=== PATIENT | female | born 1965 | race Caucasian/White ===

== ENCOUNTER 2017-04-22 11:25 | Inpatient (IN) | payer OTHER ==
[2017-04-22] MEDS ORDERED: LR 1,000 ML IV ONE (12:08)
[2017-04-22] MEDS ORDERED: LIDOCAINE 1% 2 ML INJ ID PRN (12:08)
[2017-04-22 12:58] LABS: % IMMATURE GRANULYOCYTES 0.4 % (0.0-1.1); ABSOLUTE IMMATURE GRANULOCYTES 0.03 10^3/uL (0.00-0.10); ADD DIFF? NO; ADD MORPH? NO; ADD SCAN? NO; ATYPICAL LYMPHOCYTE FLAG 0 (0-99); FRAGMENT RBC FLAG 0 (0-99); HEMATOCRIT 35.6 % (38.0-47.0); HEMOGLOBIN 11.3 g/dL (12.6-16.3); LEFT SHIFT FLG 10 (0-99); LIPEMIA HEMOLYSIS FLAG 80 (0-99); MEAN CELL HEMOGLOBIN 29.8 pg (27.9-34.1); MEAN CELL HEMOGLOBIN CONCENTR. 31.7 g/dL (32.4-36.7); MEAN CELL VOLUME 93.9 fL (81.5-99.8); MEAN PLATELET VOLUME 8.7 fL (8.7-11.7); PLATELET CLUMPS FLAG 0 (0-99); PLATELET COUNT 256 10^3/uL (150-400); RED BLOOD CELL COUNT 3.79 10^6/uL (4.18-5.33); RED CELL DISTRIBUTION WIDTH 12.9 % (11.5-15.2)
[2017-04-22] MEDS ORDERED: fentaNYL 100 MCG/2 ML INJ IT ONE (13:02)
[2017-04-22] MEDS ORDERED: TRANEXAMIC ACID 1,000 MG in NS 100 ML IV ONE (13:02)
[2017-04-22] MEDS ORDERED: ceFAZolin 2 GM/DEXTROSE 100 ML IV ONE (13:02)
[2017-04-22] MEDS ORDERED: morphINE PF 5 MG/10 ML INJ IT ONE (13:02)
[2017-04-22] MEDS ORDERED: THROMBIN (BOVINE) 20,000 UNIT VIAL TP ONE (13:12)
[2017-04-22] MEDS ORDERED: CHLORHEXIDINE GLUC HIBICLENS 118 ML BTL TP ONE (13:12)
[2017-04-22] MEDS ORDERED: BUPIVACAINE 0.25% 30 ML SDV ONE (13:13)
[2017-04-22] MEDS ORDERED: BACITRACIN 50,000 UNITS/10 ML SYR IRR ONE (13:13)
[2017-04-22 13:24] LABS: ANION GAP 8 mEq/L (8-16); CALCIUM 9.5 mg/dL (8.5-10.4); CARBON DIOXIDE 28 mEq/l (22-31); CHLORIDE 101 mEq/L (97-110); CREATININE 0.8 mg/dL (0.6-1.0); GLOMERULAR FILTRATION RATE > 60; GLUCOSE 92 mg/dL (70-100); POTASSIUM 4.6 mEq/L (3.5-5.2); SODIUM 137 mEq/L (134-144)
[2017-04-22] MEDS ORDERED: MIDAZOLAM 2 MG/2 ML VIAL IVP ONE (13:37)
--- NOTE | 2017-04-22 13:39 | PDANEPAE ---
ANE History of Present Illness lower back pain and left leg pain, nerve compression ANE Past Medical History Past Medical History: htn, - Cardiovascular History Hx Hypertension: Yes Hx Arrhythmias: No Hx Chest Pain: No Hx Coronary Artery / Peripheral Vascular Disease: No Hx CHF / Valvular Disease: No Hx Palpitations: No Cardiovascular History Comment: HYPERLIPIDEMIA - Pulmonary History Hx COPD: No Hx Asthma/Reactive Airway Disease: Yes Hx Recent Upper Respiratory Infection: No Hx Oxygen in Use at Home: No Hx Sleep Apnea: No Sleep Apnea Screening Result - Last Documented: Negative - Neurologic History Hx Cerebrovascular Accident: No Hx Seizures: No Hx Dementia: No - Endocrine History Hx Diabetes: No - Renal History Hx Renal Disorders: No - Liver History Hx Hepatic Disorders: No - Neurological & Psychiatric Hx Hx Neurological and Psychiatric Disorders: No - Cancer History Hx Cancer: No - Congenital Disorder History Hx Congenital Disorders: No - GI History Hx Gastrointestinal Disorders: No Gastrointestinal History Comment: ACID REFLUX - Other Health History Other Health History: NEG - Chronic Pain History Chronic Pain: Yes (BACK PAIN & LEG L) - Surgical History Prior Surgeries: LUMBAR FUSION ANE Review of Systems Review of Systems: - Exercise capacity METS (RN): 4 METS ANE Patient History - Allergies Allergies/Adverse Reactions: No Known Allergies Allergy (Unverified 10/24/12 13:20) - Home Medications Home Medications: Citalopram [celeXA 20 MG (RX)] 20 mg PO DAILY 10/24/12 [Last Taken 04/21/17 18: 00] Dexlansoprazole [Dexilant] 60 mg PO DAILY 10/24/12 [Last Taken 04/22/17 05:00] Lovastatin 20 mg PO DAILY 10/24/12 [Last Taken 04/20/17 18:00] Gabapentin [Neurontin 300 MG (*)] 600 mg PO DAILY 04/22/17 [Last Taken 04/22/17 11:15] Herbals/Supplements -Info Only 1 ea PO DAILY 04/22/17 [Last Taken Unknown] Lisinopril [Zestril 40 mg (*)] 40 mg PO DAILY 04/22/17 [Last Taken 04/22/17 05: 00] Methocarbamol [Robaxin 500 mg (*)] 500 mg PO Q4HRS PRN 04/22/17 [Last Taken 11:15] oxyCODONE IR [Oxycodone Ir (*)] 10 mg PO Q4HRS PRN 04/22/17 [Last Taken 11:15] - NPO status NPO Since - Liquids (Date): 04/21/17 NPO Since - Liquids (Time): 21:00 NPO Since - Solids (Date): 04/21/17 NPO Since - Solids (Time): 21:00 - Smoking Hx Smoking Status: Never smoked ANE Labs/Vital Signs - Labs Result Diagrams: 04/22/17 12:47 04/22/17 12:47 - Vital Signs Blood Pressure: 98/62 Heart Rate: 61 Respiratory Rate: 16 O2 Sat (%): 93 Height: 160.02 cm Weight: 74.843 kg ANE Physical Exam - Airway Neck exam: FROM Mallampati Score: Class 2 Mouth exam: poor dentition - Pulmonary Pulmonary: no respiratory distress - Cardiovascular Cardiovascular: regular rate and rhythym - ASA Status ASA Status: III ANE Anesthesia Plan Anesthesia Plan: general endotracheal anesthesia
[2017-04-22] MEDS ORDERED: HYDROmorphONE/DILAUDID 2 MG/ML INJ ONE (13:42)
[2017-04-22] MEDS ORDERED: fentaNYL 100 MCG/2 ML INJ ONE ×4 (13:42→17:14)
[2017-04-22] MEDS ORDERED: ROCURONIUM 50 MG/5 ML VIAL ONE (13:42)
--- NOTE | 2017-04-22 13:46 | PDHPUP ---
History & Physical Update H&P update statement: This history and physical update is based on an assessment of the patient which was completed after admission or registration (within 24 hours), but prior to the surgery/procedure. The patient underwent a CT of her lumbar spine after she was seen in the clinic for her post op visit. The CT was reviewed by Dr. Lambert who felt that the L4 screw was malpositioned and possibly contributing to her left leg pain. He subsequently recommended she undergo hardware removal and revision. She reports paresthesias and pain in her left anterior thigh to the ankle, sparing the foot. H&P update: no change in patient's condition since H&P completed
[2017-04-22] MEDS ORDERED: ONDANSETRON 4 MG/2 ML VIAL IVP PRN ×2 (14:50→16:47)
[2017-04-22] MEDS ORDERED: PROMETHAZINE HCL 25 MG/ML INJ IVP PRN (14:50)
[2017-04-22] MEDS ORDERED: NALOXONE HCL 0.4 MG/ML INJ IVP PRN ×2 (14:50→16:47)
[2017-04-22] MEDS ORDERED: BISACODYL 10 MG SUPP PR PRN (16:47)
[2017-04-22] MEDS ORDERED: MAGNESIUM HYDROXIDE 30 ML UDCUP PO PRN (16:47)
[2017-04-22] MEDS ORDERED: diphenhydrAMINE 25 MG CAP PO PRN (16:47)
[2017-04-22] MEDS ORDERED: LACTULOSE 20 GM/30 ML UDCUP PO PRN (16:47)
[2017-04-22] MEDS ORDERED: ONDANSETRON DISINTEGRATING 4 MG TAB PO PRN (16:47)
[2017-04-22] MEDS ORDERED: HYDROmorphONE/DILAUDID 6 MG/30 ML PCA IV PRN (16:47)
--- NOTE | 2017-04-22 16:47 | POSTOPPROG ---
Post Op Note Date of Operation: 04/22/17 Surgeon: Marcos Parsons Paper Tube Cutter: Alberta Anesthesiologist: Meera Anesthesia: GET(General Endotracheal) Pre-op Diagnosis: malpositioned left L4 pedicle screw Post-op Diagnosis: same Indication: Left L4 radiculopathy Procedure: removal and replacement of left L4 screw.Instrumentation on right sideL4-S1 Findings: medially placed left L4 screw Inf/Abcess present in the surg proc area at time of surgery?: No EBL: 50-100 Complications: None Drains: Mika Hicks (to bulb suction)
--- NOTE | 2017-04-22 16:50 | POSTANESTH ---
Post Anesthetic Evaluation Cardiovascular Status: Normal, Stable Respiratory Status: Normal, Stable Level of Consciousness/Mental Status: Can Participate in Eval Pain Control: Adequate, Prn Tx Ordered Nausea/Vomiting Control: Adequate, Prn Tx Ordered Complications Possibly Related to Anesthesia: None Noted
[2017-04-22] MEDS ORDERED: NS 1,000 ML IV SCH (17:00)
--- NOTE | 2017-04-22 17:02 | SOAPPROG ---
SOAP Progress Note Assessment/Plan: Assessment: POST OP CHECK: Doing well s/p Left L4 screw removal and replacement and right L4-s1 fusion Plan: CPM in PACU, Transfer to floor per protocol KAREN to bulb suction call for neuro changes 04/22/17 16:58 Subjective: asleep, wakes to voice stim, comfortable Objective: Vital Signs Temp Pulse Resp BP Pulse Ox 36.7 C 61 16 98/62 L 93 04/22/17 13:04 04/22/17 13:39 04/22/17 13:39 04/22/17 13:39 04/22/17 13:39 Laboratory Results 04/22/17 12:47 04/22/17 12:47 Vitals: HR: 76 02: 96 % face mask BP: 113/75 Neuro: Follows commands x 4 WALLACE to command, sensation +LT throughout PERRLA, EOMi ICD10 Worksheet Patient Problems: Problems Problem Status Onset hardware Acute
[2017-04-22] MEDS: fentaNYL 100 MCG/2 ML INJ IVP PRN ×2 (17:17→17:26)
[2017-04-22] MEDS ORDERED: HYDROmorphONE/DILAUDID 1 MG/ML INJ ONE (17:43)
[2017-04-22] MEDS: HYDROmorphONE/DILAUDID 1 MG/ML INJ IVP PRN ×2 (17:45→17:56)
[2017-04-22] MEDS ORDERED: DIAZEPAM 10 MG/2 ML SYR ONE (18:05)
[2017-04-22] MEDS ORDERED: DIAZEPAM 5 MG TAB PO PRN (18:10)
[2017-04-22] MEDS ORDERED: DIAZEPAM 10 MG/2 ML SYR IVP ONE (18:15)
[2017-04-22] MEDS: METHOCARBAMOL 750 MG TAB PO PRN (18:55)
[2017-04-22] MEDS: HYDROmorphONE/DILAUDID 2 MG TAB PO PRN (19:01)
[2017-04-22 21:25] VITALS: RESP 16
[2017-04-22] MEDS: ACETAMINOPHEN 500 MG TAB PO SCH (21:39)
[2017-04-22] MEDS: ceFAZolin 2 GM/DEXTROSE 100 ML IV SCH (21:39)
[2017-04-22] MEDS: FAMOTIDINE 20 MG TAB PO SCH (21:40)
[2017-04-22] MEDS: oxyCODONE IR 5 MG TAB PO PRN (21:41)
[2017-04-22] MEDS: POLYETHYLENE GLYCOL 3350 17 GM PKT PO SCH (21:42)
[2017-04-22] MEDS: SENNOSIDES/DOCUSATE SODIUM TAB PO SCH (21:43)
--- NOTE | 2017-04-23 04:07 | GOP ---
[f rep st] OPERATIVE REPORT DATE OF OPERATION: 04/22/2017 SURGEON: Marcos Parsons MD FIELD HANDYMAN: Levon Pinzon PA-C. ANESTHESIA: General endotracheal. PREOPERATIVE DIAGNOSIS: Malpositioned left L4 pedicle screw. POSTOPERATIVE DIAGNOSIS: Malpositioned left L4 pedicle screw. PROCEDURE PERFORMED: 1. Removal and reinsertion of spinal fixation device at L4 and placement of posterior segmental (ped icle screw) fixation on the right at L4 through S1. 2. Redo L4-S1 posterolateral fusion with bone morphogenic protein and morselized allograft. 3. Injection of intrathecal narcotics and subcutaneous and intramuscular local anesthesia. FINDINGS: ESTIMATED BLOOD LOSS: 100 cc. INDICATIONS: The patient is a 51-year-old woman, who underwent an L4 through S1 instrumented decompr ession and fusion approximately a month ago, who has had progressively worsening left L4 distribution radicular pain. Postoperative MRI and CT scans confirmed a medial breach of the pedicle screw at L4 , and she presents now for exploration and removal/revision/reinsertion of instrumentation and a redo fusion. DESCRIPTION OF PROCEDURE: After informed consent was obtained, the patient was taken to the operatin g room and placed in the prone position on the Mika table. The lumbosacral area was prepped and d raped in a sterile fashion, and the prior incision carefully opened down to the level of the instrume ntation. The VersaTrac retractor was placed and the locking caps were removed on the left side of th e pedicle screws. The jesse was taken out and the left L4 screw removed. The microscope was brought i n and careful dissection revealed a medial breach of the left L4 pedicle by the screw. This was care fully cleaned up and the O-arm neuronavigational system brought in, and a new pedicle screws placed a t L4 with a much more [id number]-[id number] trajectory, and it was confirmed that there was no breaching on the screw. In an effort to thoroughly avoid a nonunion or other issues down the road, new pedicle screws were placed on the right at the L4, L5, and S1 levels using computer volumetric stereotactic navigation. Each individual screw was tested neurophysiologically with monopolar electrostimulation and interpretation of the potentials by the surgeon. The O-arm neuronavigational system was then uti lized to confirm good position of all the new screws. New rods were placed at L4 through S1 araceli wilson and locked into place. The right-sided lamina and facet joints were re-decorticated and the loca l autograft that had been removed along with bone morphogenic protein and morselized allograft were r eplaced for a posterolateral fusion from L4 through S1. A drain was placed. The subcutaneous and in tramuscular tissues were re-infiltrated with local anesthesia. 200 mcg of Duramorph along with 50 mc g of fentanyl were injected intrathecally, and the wound was closed in a layered fashion using interr upted Vicryl sutures, followed by Steri-Strips on the skin. COMPLICATIONS: None. DISPOSITION: The patient is currently in the process of being repositioned for extubation. /[id number]/MODL
[2017-04-23] MEDS: ACETAMINOPHEN 500 MG TAB PO SCH ×2 (04:27→13:10)
[2017-04-23] MEDS: METHOCARBAMOL 750 MG TAB PO PRN ×2 (04:27→10:47)
[2017-04-23] MEDS: oxyCODONE IR 5 MG TAB PO PRN ×2 (04:27→10:47)
[2017-04-23] MEDS: ceFAZolin 2 GM/DEXTROSE 100 ML IV SCH (04:28)
[2017-04-23 04:51] LABS: % IMMATURE GRANULYOCYTES 0.4 % (0.0-1.1); ABSOLUTE IMMATURE GRANULOCYTES 0.04 10^3/uL (0.00-0.10); ADD DIFF? NO; ADD MORPH? NO; ADD SCAN? NO; ATYPICAL LYMPHOCYTE FLAG 0 (0-99); FRAGMENT RBC FLAG 0 (0-99); HEMATOCRIT 32.1 % (38.0-47.0); LEFT SHIFT FLG 40 (0-99); LIPEMIA HEMOLYSIS FLAG 80 (0-99); MEAN CELL HEMOGLOBIN 29.3 pg (27.9-34.1); MEAN CELL HEMOGLOBIN CONCENTR. 31.2 g/dL (32.4-36.7); MEAN CELL VOLUME 94.1 fL (81.5-99.8); MEAN PLATELET VOLUME 9.1 fL (8.7-11.7); PLATELET CLUMPS FLAG 0 (0-99); PLATELET COUNT 255 10^3/uL (150-400); RED BLOOD CELL COUNT 3.41 10^6/uL (4.18-5.33); RED CELL DISTRIBUTION WIDTH 12.9 % (11.5-15.2)
[2017-04-23 05:03] LABS: ANION GAP 5 mEq/L (8-16); CALCIUM 8.8 mg/dL (8.5-10.4); CARBON DIOXIDE 28 mEq/l (22-31); CHLORIDE 104 mEq/L (97-110); CREATININE 0.7 mg/dL (0.6-1.0); GLOMERULAR FILTRATION RATE > 60; GLUCOSE 108 mg/dL (70-100); POTASSIUM 4.8 mEq/L (3.5-5.2); SODIUM 137 mEq/L (134-144)
--- NOTE | 2017-04-23 07:13 | SOAPPROG ---
SOAP Progress Note Assessment/Plan: Assessment: Doing well s/p Left L4 screw removal and replacement and right L4-s1 fusion Left leg pain is notably improved today with improved sensation Plan: PT/OT as tolerated today Lumbar xrays today Continue KAREN to bulb suction LSO when out of bed likely observe today and have her work with therapies etc and be sure pain is controlled as the intrathecal narcotics wear off. 04/23/17 07:12 Subjective: awake, alert, pain controlled She states her left leg sensation is much better and she has much less pain in the left leg as well. Objective: Vital Signs Temp Pulse Resp BP Pulse Ox 36.9 C 67 16 105/67 94 04/23/17 04:00 04/23/17 04:00 04/23/17 04:00 04/23/17 04:00 04/23/17 04:00 Microbiology 04/22/17 14:56 Gram Stain - Final Back - Tissue 04/22/17 14:56 Gram Stain - Final Back - Eswab Laboratory Results 04/23/17 04:18 04/23/17 04:18 04/22/17 04/23/17 04/24/17 05:59 05:59 05:59 Intake Total 2810 Output Total 1750 400 Balance 1060 -400 KAREN: 150ml Neuro: WALLACE, sens +LT follows commands Dressing; CDI ICD10 Worksheet Patient Problems: Problems Problem Status Onset hardware Acute
[2017-04-23] MEDS: HYDROmorphONE/DILAUDID 2 MG TAB PO PRN ×2 (08:51→13:11)
[2017-04-23] MEDS: SENNOSIDES/DOCUSATE SODIUM TAB PO SCH (08:53)
[2017-04-23] MEDS: FAMOTIDINE 20 MG TAB PO SCH (08:54)
[2017-04-23] MEDS: POLYETHYLENE GLYCOL 3350 17 GM PKT PO SCH (08:54)
[2017-04-23] MEDS ORDERED: NON-FORMULARY NEW DRUG (Dexlansoprazole [Dexilant] 60 MG) PO SCH (09:00)
[2017-04-23] MEDS ORDERED: NON-FORMULARY NEW DRUG (Lovastatin [Lovastatin] 20 MG) PO SCH (09:00)
[2017-04-23] MEDS ORDERED: CITALOPRAM 20 MG TAB PO SCH (09:00)
[2017-04-23] MEDS ORDERED: PANTOPRAZOLE SODIUM 40 MG TAB PO SCH (09:00)
[2017-04-23] MEDS ORDERED: ENOXAPARIN 40 MG/0.4 ML SYR SC SCH (09:00)
[2017-04-23] MEDS ORDERED: GABAPENTIN 300 MG CAP PO SCH (09:00)
[2017-04-23] MEDS ORDERED: PRAVASTATIN SODIUM 20 MG TAB PO SCH (09:00)
[2017-04-23] MEDS ORDERED: LISINOPRIL 40 MG TAB PO SCH (09:00)
[2017-04-23 11:54] VITALS: BP 109/60; PULSE 76; TEMP 98.3
[2017-04-23] MEDS ORDERED: FLU VACC QS 2017-18 (3YR+)/PF 0.5 ML SYR (FLUARIX QUAD) IM ONE (13:06)
[2017-04-23 14:21] VITALS: O2SAT 87
--- NOTE | 2017-04-23 14:42 | ASMTCMCOM ---
CM Note CM Note Notes: PT clears pt for home w supervision/support of husb. Pt medically stable for d/c, no CM d/c needs identified. Date Signed: 04/23/2017 02:41 PM Electronically Signed By:DOROTA Steward
--- NOTE | 2017-04-23 15:08 | ASDISCHSUM ---
Discharge Information Plan Status:Home with No Needs Medically Cleared to Leave: Discharge Date:04/23/2017 02:52 PM CM D/C Disposition:Home, Routine, Self-Care ADT D/C Disposition:Home, Routine, Self-Care Projected Discharge Date:04/23/2017 02:52 PM Transportation at D/C: Discharge Delay Reason: Follow-Up Date:04/23/2017 02:52 PM Discharge Slot: Final Diagnosis: Placement Information Patient Contact Information Contact Name:KALEY Relationship: Address:[address] City:[place] Alternate Phone: [facility]/Zip Code:[place] [address] Email: Financial Information Financial Class:HMO and PPO Plans Primary Plan Desc:[employer] Primary Plan Number:[id number] Secondary Plan Desc: Secondary Plan Number: Assessment Information [facility] CM Progress Note CM Note CM Note Notes: PT clears pt for home w supervision/support of husb. Pt medically stable for d/c, no CM d/c needs identified. Date Signed: 04/23/2017 02:41 PM Electronically Signed By:DOROTA Steward Intervention Information
== END 2017-04-23 14:52 | disposition home or self-care (01) | DRG 460 ==
LOC: F3N 11:34
PROVIDERS: ADMIT Neurological Surgery; ATTEND Neurological Surgery
DX: T84.226A Displacement of internal fixation device of vertebrae, initial encounter (principal); Z98.1 Arthrodesis status; I10 Essential (primary) hypertension; E78.5 Hyperlipidemia, unspecified; J45.909 Unspecified asthma, uncomplicated; K21.9 Gastro-esophageal reflux disease without esophagitis
CPT/HCPCS: 97161-GP; 97165-GO; C1713; C1762; G0008; J0171; J0690; J1170; J1650; J2250; J3010